=== PATIENT | male | born 1975 | race Caucasian/White ===

== ENCOUNTER → 2020-11-24 | Outpatient (CLI) | payer BC | END | disposition home or self-care (01) ==

== ENCOUNTER → 2022-09-26 | Outpatient (CLI) | payer BC ==
--- NOTE | 2022-09-26 11:19 | XR ---
EXAM TYPE: LUMBAR SPINE X RAY SERIES COMPARISON: NONE HISTORY: Pain TECHNIQUE: 4 views are submitted. FINDINGS: Alignment is anatomic. The pedicles are intact. The transverse processes are intact. There is no b rachial anterolisthesis L4 and L5 with severe facet arthropathy L4-5 and L5-S1. There is moderate to severe degenerative disc disease L2-L3 with retrolisthesis of L2 measuring approximately 7 mm. Atypic al mineralization L2. Diffuse osteopenia. IMPRESSION: 1. Severe facet arthropathy L4-5 and L5-S1 with grade 1 anterolisthesis of L4 on L5. Suspect foramina l encroachment. 2. Retrolisthesis of L2 relative to L3 with degenerative disc disease and atypical mineralization of the L2 segment. Recommend MRI.
== END | disposition home or self-care (01) ==
LOC: RADXRYALE 10:42
PROVIDERS: ATTEND Physician Assistant
DX: M47.817 Spondylosis without myelopathy or radiculopathy, lumbosacral region (principal); M43.16 Spondylolisthesis, lumbar region; M51.36 Other intervertebral disc degeneration, lumbar region
CPT/HCPCS: 72110